=== PATIENT | female | born 1935 | race Caucasian/White ===

== ENCOUNTER → 2023-12-18 | Outpatient (REF) | payer MEDICARE, OTHER, SELFPAY ==
[2023-12-18 09:24] LABS: Hemoglobin A1c 7.2 % (3.8-5.6)
== END ==
LOC: OLS.ACH 04:00
PROVIDERS: Referring Provider Family Medicine; Visit Provider Family Medicine
DX: I50.23 Acute on chronic systolic (congestive) heart failure (principal); E44.1 Mild protein-calorie malnutrition; E87.1 Hypo-osmolality and hyponatremia; Z79.899 Other long term (current) drug therapy
CPT/HCPCS: 36415; 83036

== ENCOUNTER → 2024-01-16 | Outpatient (REF) | payer MEDICARE, OTHER, SELFPAY ==
[2024-01-16 08:47] LABS: Color, Urine Amber (Yellow); Glucose, Dipstick Normal (Normal); Ketone-Dipstick 5 mg/dl (Negative); Leukocyte Esterase-Dipstick 500 /ul (Negative); Nitrite-Dipstick Positive (Negative); Occult Blood-Urine 250 /ul (Negative); Protein-Dipstick 100 mg/dl (Negative); Urine Clarity Turbid (Clear); Urine Urobilinogen 1 mg/dl (Normal)
[2024-01-16 08:48] LABS: Urine Bilirubin Dipstick 1 mg/dL (Negative)
[2024-01-16 08:56] LABS: Bacteria 4+ /hpf (None Seen); Mucous, Urine RARE /hpf (<or=2+); Red Blood Cells-Urine 50-100 SEEN /hpf (0-5); Squamous Epithelial Cells - UA 0-5 SEEN /hpf (5-10); White Blood Cells 50-100 SEEN /hpf (0-5)
== END ==
LOC: OLS.ACH 02:30
PROVIDERS: Visit Provider Family Medicine
DX: R31.9 Hematuria, unspecified (principal); R39.14 Feeling of incomplete bladder emptying
CPT/HCPCS: 81001; 87077; 87086; 87088; 87186